=== PATIENT | male | born 1975 | race Two or more races ===

== ENCOUNTER 2017-10-21 19:50 | Emergency (ER) | payer OTHER ==
[~2017-10-21] VITALS: Ht 185.4 cm; Wt 95.2 kg
[2017-10-21 19:59] VITALS: Ht 185.4 cm; Wt 95.2 kg
[2017-10-22 00:52] VITALS: BP 114/78
== END 2017-10-22 00:52 | disposition home or self-care (01) ==
LOC: ED 19:50
DX: M54.5 Low back pain (principal)
CPT/HCPCS: J1170; J1885; J2405; J3010